=== PATIENT | female | born 1975 | race Caucasian/White ===

== ENCOUNTER 2017-09-09 09:50 | Emergency (ER) | payer OTHER ==
[2017-09-09 10:24] VITALS: BP 149/55; PULSE 83; TEMP 98.3; BMI 37.8
[2017-09-09] MEDS ORDERED: IBUPROFEN 400 MG TABLET (FP) PO ONE (11:20)
--- NOTE | 2017-09-09 11:21 | PDOC ---
History of Present Illness - General Chief Complaint: Injury Stated Complaint: INJURY Time Seen by Provider: 09/09/17 11:06 History Source: Patient Exam Limitations: No Limitations - History of Present Illness Initial Comments: 09/09/17 11:21 42-year-old woman without significant past medical history presents to the emergency department today with right foot and ankle pain status post twisting injury at work. 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 She then tried to turn and did not realize her foot was stuck between the chest. She experienced a inversion injury followed by external rotation injury of the right ankle. Patient states she heard a "cracking" sound. Patient was able to bear weight immediately after the injury the presented to the emergency department. Method of Injury: Yes: twisted Modifying Factors: improves with: None Past History - Past Medical History Allergies/Adverse Reactions: Allergies Allergy/AdvReac Type Severity Reaction Status Date / Time No Known Allergies Allergy Verified 09/09/17 10:20 Home Medications: Ambulatory Orders NK [No Known Home Medication] 09/09/17 CVA: No COPD: No DVT: No Dementia: No - Immunization History Immunization Up to Date: Yes - Suicide/Smoking/Psychosocial Hx Smoking Status: No Smoking History: Never smoked Number of Cigarettes Smoked Daily: 0 Information on smoking cessation initiated: No Hx Alcohol Use: No Drug/Substance Use Hx: No Substance Use Type: None Review of Systems - Review of Systems Able to Perform ROS?: Yes Is the patient limited Occitan proficient: No Constitutional: No: Symptoms Reported HEENTM: No: Symptoms Reported Respiratory: No: Symptoms reported Cardiac (ROS): No: Symptoms Reported ABD/GI: No: Symptoms Reported : No: Symptoms Reported Musculoskeletal: Yes: See HPI Integumentary: No: Symptoms Reported Neurological: No: Symptoms reported *Physical Exam - Vital Signs Last Vital Signs Temp Pulse Resp BP Pulse Ox 98.3 F 83 16 149/55 97 09/09/17 10:20 09/09/17 10:20 09/09/17 10:20 09/09/17 10:20 09/09/17 10:20 - Physical Exam General Appearance: Yes: Appropriately Dressed. No: Apparent Distress HEENT: positive: Normal Voice Neck: positive: Trachea midline Respiratory/Chest: positive: Lungs Clear, Normal Breath Sounds. negative: Respiratory Distress, Accessory Muscle Use Cardiovascular: positive: Regular Rhythm, Regular Rate. negative: Edema, Murmur Gastrointestinal/Abdominal: positive: Normal Bowel Sounds, Soft. negative: Tender Musculoskeletal: positive: Normal Inspection Extremity: positive: Tender (lateral aspect of dorsum of right foot extending to the lateral malleolus), Swelling (lateral aspect of dorsum of right foot extending to the lateral malleolus) Integumentary: positive: Normal Color, Dry, Warm Neurologic: positive: Fully Oriented, Alert, Motor Strength 5/5 Medical Decision Making - Medical Decision Making 09/09/17 11:18 A/P: 42yo with tenderness to right lateral malleolus extending to the lateral aspect of dorsum of right foot. +swelling to tender area. 5/5 strength with flexion and dorsiflexion of ankle. (-) ecchymosis UPT Motrin 800mg Xrays reassess 09/09/17 12:13 X-rays read by me: Yang fracture noted in the fifth metatarsal. I will apply a bulky dressing to the patient and have her follow-up with podiatry in the next 3 days. I discussed the physical exam findings, ancillary test results and final diagnoses with the patient. I answered all of the patient's questions. The patient was satisfied with the care received and felt comfortable with the discharge plan and treatment plan. The patient will call Dr. Barone within 72 hours to arrange follow-up and will return to the Emergency Department with any new, persistent or worsening symptoms. *DC/Admit/Observation/Transfer Diagnosis at time of Disposition: Yang fracture Qualifiers: Encounter type: initial encounter Fracture type: closed Laterality: right Qualified Code(s): S99.191A - Other physeal fracture of right metatarsal, initial encounter for closed fracture - Discharge Dispostion Disposition: HOME Condition at time of disposition: Stable Admit: No - Referrals Referrals: Glory Han MD [Primary Care Provider] - Carlos Barone MD [Staff Physician] - - Patient Instructions Additional Instructions: Resting your foot will help control pain. Limit the amount of time on your feet throughout the day. Apply ice for 20 minutes at a time. Remove for a minimum of 20 minutes before reapplying. Keep dressing on foot to help compress the joint which will help control pain. Elevate the foot to the level of the heart when not standing. Take Motrin or Aleve as directed by manufacturers instructions for pain. You may take Tylenol in between doses of Aleve or Motrin to help control pain. You've been given a referral for Dr. Barone, a sled maker. Make an appointment for follow-up in 3 days. Use crutches as you have been shown. Return to emergency department for worsening pain, swelling, discoloration of your foot, loss of sensation, or any other concerns. Thank you very much for choosing us to provide your emergent healthcare needs. - Post Discharge Activity Forms/Work/School Notes: Back to Work
[2017-09-09] MEDS: IBUPROFEN 400 MG TABLET (FP) PO ONE ×2 (11:34→11:51)
[2017-09-09] MEDS ORDERED: ACETAMINOPHEN 500 MG TABLET (FP) ONE (11:38)
[2017-09-09] MEDS ORDERED: ACETAMINOPHEN 500 MG TABLET (FP) PO ONE (11:49)
== END 2017-09-09 12:44 | disposition home or self-care (01) ==
LOC: JERFT 09:50
DX: S92.354A Nondisplaced fracture of fifth metatarsal bone, right foot, initial encounter for closed fracture (principal); X50.1XXA Overexertion from prolonged static or awkward postures, initial encounter; Y93.89 Activity, other specified; Y92.218 Other school as the place of occurrence of the external cause; Y99.0 Civilian activity done for income or pay
CPT/HCPCS: 73610-TC-RT; 73630-TC-RT; 99281-25

== ENCOUNTER 2017-12-11 11:47 | Emergency (ER) | payer OTHER ==
[2017-12-11 11:57] VITALS: BMI 37.8
--- NOTE | 2017-12-11 13:17 | PDOC ---
History of Present Illness - General History Source: Patient, Old Records, Primary Care Provider Exam Limitations: No Limitations - History of Present Illness Initial Comments: 12/11/17 14:04 The patient is a 42 year old female, with no significant past medical history, who presents to the emergency department with right calf pain, erythema and edema for the past two days. The patient recently had an ORIF of the 5th metatarsal performed on November 06, 2017. The patient states that her incision site was healing well and that she was ambulating well with a walking boot. Two days ago, she woke up with what she explains as intense pain, erythema and edema of the right calf. She was seen by the trade mark attorney who performed the procedure yesterday, started on Bactrim and was sent to the ED for DVT r/o. She denies fever, chills, headache, dizziness, shortness of breath, chest pain, nausea, vomiting, diarrhea or constipation. The patient denies any recent travel. Allergies: None reported. Past Surgical History: Right foot, ORIF of the 5th metatarsal. Social History: Non-smoker. Denies alcohol or drug use. 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 <Aundrea Fischer - Last Filed: 12/11/17 14:04> <Malathi Centeno - Last Filed: 12/11/17 16:57> - General Chief Complaint: Redness To Affected Area Stated Complaint: PCP SENT (POSSIBLE BLOOD CLOT) Past History <Aundrea Fischer - Last Filed: 12/11/17 14:04> - Past Medical History CVA: No COPD: No DVT: No Dementia: No - Immunization History Immunization Up to Date: Yes - Suicide/Smoking/Psychosocial Hx Smoking Status: No Smoking History: Never smoked Number of Cigarettes Smoked Daily: 0 Information on smoking cessation initiated: No Hx Alcohol Use: No Drug/Substance Use Hx: No Substance Use Type: None <Malathi Centeno - Last Filed: 12/11/17 16:57> - Past Medical History Allergies/Adverse Reactions: Allergies Allergy/AdvReac Type Severity Reaction Status Date / Time No Known Allergies Allergy Verified 12/11/17 11:53 Home Medications: Ambulatory Orders Sulfamethoxazole/Trimethoprim [Bactrim Ds -] 1 tab PO DAILY 12/11/17 Review of Systems - Review of Systems Able to Perform ROS?: Yes Comments:: 12/11/17 14:05 GENERAL/CONSTITUTIONAL: No fever or chills. No weakness. HEAD, EYES, EARS, NOSE AND THROAT: No change in vision. No ear pain or discharge. No sore throat. GASTROINTESTINAL: No nausea, vomiting, diarrhea or constipation. GENITOURINARY: No dysuria, frequency, or change in urination. CARDIOVASCULAR: No chest pain or shortness of breath. RESPIRATORY: No cough, wheezing, or hemoptysis. MUSCULOSKELETAL: +Right lower extremity pain, erythema and edema. No joint swelling or pain. No neck or back pain. SKIN: No rash. NEUROLOGIC: No headache, vertigo, loss of consciousness, or change in strength/ sensation. ENDOCRINE: No increased thirst. No abnormal weight change. HEMATOLOGIC/LYMPHATIC: No anemia, easy bleeding, or history of blood clots. ALLERGIC/IMMUNOLOGIC: No hives or skin allergy. <Aundrea Fischer - Last Filed: 12/11/17 14:04> *Physical Exam - Vital Signs Last Vital Signs Temp Pulse Resp BP Pulse Ox 98.0 F 72 18 114/57 100 12/11/17 11:54 12/11/17 11:54 12/11/17 11:54 12/11/17 11:54 12/11/17 11:54 - Physical Exam Comments: 12/11/17 14:05 GENERAL: Awake, alert, and fully oriented, in no acute distress HEAD: No signs of trauma EYES: PERRLA, EOMI, sclera anicteric, conjunctiva clear ENT: Auricles normal inspection, hearing grossly normal, nares patent, oropharynx clear without exudates. Moist mucosa NECK: Normal ROM, supple, no lymphadenopathy, JVD, or masses LUNGS: Breath sounds equal, clear to auscultation bilaterally. No wheezes, and no crackles HEART: Regular rate and rhythm, normal S1 and S2, no murmurs, rubs or gallops ABDOMEN: Soft, nontender, normoactive bowel sounds. No guarding, no rebound. No masses EXTREMITIES: R calf with non pitting edema and warm, erythematous almost circumferential patch in the mid calf. +ttp of calf. R lateral foot with ORIF wound c/d/i, 2+ DP pulse, normal cap refill. Otherwise, normal range of motion, no edema. No clubbing or cyanosis. No cords, erythema, or tenderness NEUROLOGICAL: Normal speech, cranial nerves intact, negative pronator drift, 5/ 5 strength in all 4 extremities, normal sensation to light touch in all 4 extremities, normal cerebellar exam, normal gait, normal reflexes and tone SKIN: Warm, Dry, normal turgor, no rashes or lesions noted. <Aundrea Fischer - Last Filed: 12/11/17 14:04> - Vital Signs Last Vital Signs Temp Pulse Resp BP Pulse Ox 98.0 F 72 18 114/57 100 12/11/17 11:54 12/11/17 11:54 12/11/17 11:54 12/11/17 11:54 12/11/17 11:54 <Malathi Centeno - Last Filed: 12/11/17 16:57> ED Treatment Course - LABORATORY CBC & Chemistry Diagram: 12/11/17 14:50 12/11/17 13:17 <Malathi Centeno - Last Filed: 12/11/17 16:57> Medical Decision Making - Medical Decision Making 12/11/17 14:10 42-year-old female with a recent foot surgery presents emergency Department with 2 days of right calf swelling, redness, and pain. No systemic symptoms of infection, no fevers/chills. Vitals within normal limits. Differential includes but not limited to cellulitis versus DVT. Plan: -labs -US -pt declines pain meds -reassess 12/11/17 16:51 Labs within normal limits. Ultrasound negative for DVT. Likely cellulitis. Patient does not have a primary doctor, will refer to resident clinic for follow -up in 2 days. Also advised pt to get rpt US in 1 week to r/o DVT and to return to the emergency department if redness, warmth, swelling does not improve in 2 days on antibiotics or if she develops fever or any new, worsening or concerning symptoms. Patient has prescription for Bactrim from the trade mark attorney. I discussed the physical exam findings, ancillary test results and final diagnoses with the patient. I answered all of the patient's questions. The patient was satisfied with the care received and felt comfortable with the discharge plan and treatment plan. The patient will call their primary care physician within 24 hours to arrange follow-up and will return to the Emergency Department with any new, persistent or worsening symptoms. <Malathi Centeno - Last Filed: 12/11/17 16:57> *DC/Admit/Observation/Transfer - Attestations Scribe Attestion: 12/11/17 14:06 Documentation prepared by Aundrea Fischer, acting as medical review coordinator for Malathi Centeno MD. <Aundrea Fischer - Last Filed: 12/11/17 14:04> - Discharge Dispostion Admit: No - Attestations Physician Attestion: 12/11/17 16:57 I, Dr. Malathi Centeno MD, attest that this document has been prepared under my direction and personally reviewed by me in its entirety. I further attest, that it accurately reflects all work, treatment, procedures and medical decision -making performed by me. <Malathi Centeno - Last Filed: 12/11/17 16:57> Diagnosis at time of Disposition: Cellulitis - Discharge Dispostion Disposition: HOME Condition at time of disposition: Stable - Referrals Ref[place]: [facility] [place] Group] - Patient Instructions Printed Discharge Instructions: DI for Cellulitis -- Adult Additional Instructions: Call the number in the provided referral today for follow up appointment with a primary doctor in 2 days. As discussed, you will also need a repeat ultrasound of your leg within 1 week. Take the antibiotics as prescribed. Return to the emergency department if you have any new, worsening or concerning symptoms including worsening redness, swelling, warmth, or fevers. - Post Discharge Activity
[2017-12-11 15:00] LABS: BASO % 0.2 % (0-2.0); EOS % 0.9 % (0-4.5); HEMATOCRIT 40.3 % (32.4-45.2); HEMOGLOBIN 13.7 GM/dL (10.7-15.3); LYMPH % 20.1 % (8-40); MCH 31.8 pg (25.7-33.7); MCHC 33.9 g/dl (32.0-36.0); MEAN CELL VOLUME 93.6 fl (80-96); MEAN PLT VOLUME 7.9 fl (7.5-11.1); MONO % 7.7 % (3.8-10.2); NEUT % 71.1 % (42.8-82.8); PLATELET COUNT 231 K/MM3 (134-434); RBC 4.31 M/mm3 (3.60-5.2); RDW 13.2 % (11.6-15.6); WHITE BLOOD COUNT 6.9 K/mm3 (4.0-10.0)
[2017-12-11 15:11] LABS: INR 1.05 (0.82-1.09); PROTHROMBIN TIME (PATIENT) 11.9 SEC (9.7-13.0)
[2017-12-11 15:13] LABS: ACTIVATED PTT 27.7 SECONDS (26.9-34.4)
[2017-12-11 15:24] LABS: ALBUMIN 3.4 g/dl (3.4-5.0); ALK PHOS 98 U/L (45-117); ANION GAP 11 (8-16); BILIRUBIN,TOTAL 0.4 mg/dL (0.2-1.0); BLOOD UREA NITROGEN 14 mg/dL (7-18); CALCIUM 8.9 mg/dL (8.5-10.1); CHLORIDE 104 mmol/L (98-107); CO2 24 mmol/L (21-32); CREATININE 0.9 mg/dL (0.55-1.02); GLUCOSE,RANDOM 78 mg/dL (74-106); POTASSIUM 4.2 mmol/L (3.5-5.1); SGOT/AST 17 U/L (15-37); SGPT/ALT 17 U/L (12-78); SODIUM 139 mmol/L (136-145); TOT PROT 7.4 g/dl (6.4-8.2)
[2017-12-11 17:51] VITALS: BP 121/61; PULSE 74; TEMP 97.8
== END 2017-12-11 17:30 | disposition home or self-care (01) ==
LOC: JER 11:47
DX: L03.90 Cellulitis, unspecified (principal)
CPT/HCPCS: 36415; 80053; 85025; 85610; 85730; 86850; 86900; 86901; 93971-TC; 99282-25

== ENCOUNTER 2019-04-12 11:36 | Emergency (ER) | payer OTHER ==
[2019-04-12 11:43] VITALS: TEMP 98.6; BMI 36.6
[2019-04-12] MEDS ORDERED: KETOROLAC TROMETHAMINE 30 MG/1 ML VIAL IVPUSH ONE (12:46)
[2019-04-12] MEDS ORDERED: SODIUM CHLORIDE 1,000 ML IV STA (12:46)
[2019-04-12] MEDS ORDERED: METOCLOPRAMIDE HCL INJECTION 10 MG/2 ML VIAL IVPB ONE (12:46)
[2019-04-12] MEDS ORDERED: METOCLOPRAMIDE HCL INJECTION 10 MG/2 ML VIAL ONE (13:15)
[2019-04-12] MEDS ORDERED: KETOROLAC TROMETHAMINE 30 MG/1 ML VIAL ONE (13:16)
--- NOTE | 2019-04-12 13:30 | PDOC ---
History of Present Illness - General Chief Complaint: Headache Stated Complaint: HEADACHE/NAUSEA Time Seen by Provider: 04/12/19 12:44 History Source: Patient Exam Limitations: No Limitations - History of Present Illness Initial Comments: 04/12/19 13:04 44 y/o 44 y/o female presents to ED with complaints of generalized throb intermittent nausea left shoulder pain x 1 week and generalized tingling intermittently for the past few weeks. Patient denies weakness, visual changes, vomiting, dizziness, recent MVA, fever, or chills. Patient denies recent dental work, throat pain, ear pain. Patient states took Aleve yesterday with good effect but did return this morning and so decided to seek medical treatment Timing/Duration: reports: episodic Severity: Yes: mild Associated Symptoms: reports: nausea/vomiting Past History - Travel Traveled outside of the country in the last 30 days: No Close contact w/someone who was outside of country & ill: No - Past Medical History Allergies/Adverse Reactions: Allergies Allergy/AdvReac Type Severity Reaction Status Date / Time No Known Allergies Allergy Verified 04/12/19 11:39 CVA: No COPD: No DVT: No Dementia: No - Immunization History Immunization Up to Date: Yes - Suicide/Smoking/Psychosocial Hx Smoking Status: No Smoking History: Never smoked Number of Cigarettes Smoked Daily: 0 Hx Alcohol Use: No Drug/Substance Use Hx: No Substance Use Type: None Patient Lives Alone: No Lives with/in: spouse/SO Neuro Specific PMHX - Complaint Specific PMHX Migraine: No Review of Systems - Review of Systems Able to Perform ROS?: Yes Constitutional: No: Symptoms Reported HEENTM: No: Symptoms Reported, Eye Pain Respiratory: No: Symptoms reported Cardiac (ROS): No: Symptoms Reported ABD/GI: Yes: Nausea : No: Symptoms Reported Musculoskeletal: No: Symptoms Reported Neurological: Yes: Headache, Tingling. No: Numbness, Weakness, Dizziness Endocrine: No: Symptoms Reported Hematologic/Lymphatic: No: Symptoms Reported *Physical Exam - Vital Signs Last Vital Signs Temp Pulse Resp BP Pulse Ox 98.6 F 78 18 142/74 100 04/12/19 11:39 04/12/19 11:39 04/12/19 11:39 04/12/19 11:39 04/12/19 11:39 - Physical Exam General Appearance: Yes: Nourished, Appropriately Dressed HEENT: positive: EOMI, LEYDI, TMs Normal, Pharynx Normal. negative: Pale Conjunctivae Neck: positive: Normal Thyroid, Supple Respiratory/Chest: positive: Lungs Clear, Normal Breath Sounds. negative: Respiratory Distress, Accessory Muscle Use Cardiovascular: positive: Regular Rhythm, Regular Rate. negative: Murmur Gastrointestinal/Abdominal: positive: Soft. negative: Tenderness Extremity: positive: Normal Capillary Refill. negative: Pedal Edema Integumentary: positive: Normal Color, Warm, Moist Neurologic: positive: Motor Strength 5/5 (ambulatory) ED Treatment Course - LABORATORY CBC & Chemistry Diagram: 04/12/19 13:26 04/12/19 13:26 - RADIOLOGY Radiology Studies Ordered: Category Date Time Status HEAD CT WITHOUT CONTRAST [CT] Stat CT Scan 04/12/19 13:09 Ordered Medical Decision Making - Medical Decision Making 04/12/19 13:37 Chief complaint: Headache with nausea 1 week with intermittent tingling to extremities x 4 greater on the left for the past 2 weeks Exam: Vital signs stable no neuro focal deficits Plan: head CT, labs, IV fluids, Reglan and Toradol ordered 04/12/19 14:40 Laboratory Tests 04/12/19 04/12/19 04/12/19 13:26 13:26 14:10 WBC 6.0 Hgb 14.0 Hct 40.6 RDW 13.5 Absolute Neuts (auto) 4.1 Lymphocytes % 22.0 Monocytes % 8.1 Eosinophils % 1.3 Basophils % 0.4 Sodium 140 Potassium 4.1 Chloride 107 Carbon Dioxide 29 BUN 12.1 Creatinine 0.7 Est GFR (CKD-EPI)AfAm 121.27 Est GFR (CKD-EPI)NonAf 104.64 Calcium 8.9 Total Bilirubin 0.6 AST 15 ALT 17 Urine Ketones Negative Urine Blood Negative Urine Nitrite Negative Urine Bilirubin Negative Ur Leukocyte Esterase Negative patient states feeling better and awaiting head CT 04/12/19 15:43 CT shows no intracranial hemorrhage, mass lesion, or infarct. Complete opacification of the right maxillary sinus which demonstrates increased central density consistent with secretions or chronic allergic sinusitis. Also noted similar moderate opacification of the right ethmoid sinus. *DC/Admit/Observation/Transfer Diagnosis at time of Disposition: Headache, Tingling - Discharge Dispostion Disposition: HOME Condition at time of disposition: Improved - Referrals Referrals: Josue Velasquez MD [Primary Care Provider] - Horacio Marks MD [Staff Physician] - - Patient Instructions Printed Discharge Instructions: DI for Sinusitis, DI for Numbness/tingling, DI for Cervical Radiculopathy Additional Instructions: May take Motrin or Tylenol for discomfort but I do recommend purchasing Claritin 10 mg to take daily until you're seen by the ENT specialist in regards to sinusitis. - Post Discharge Activity
[2019-04-12 13:33] LABS: BASO % 0.4 % (0-2.0); EOS % 1.3 % (0-4.5); HEMATOCRIT 40.6 % (32.4-45.2); MCH 32.4 pg (25.7-33.7); MCHC 34.5 g/dl (32.0-36.0); MEAN CELL VOLUME 93.9 fl (80-96); MEAN PLT VOLUME 7.5 fl (7.5-11.1); MONO % 8.1 % (3.8-10.2); NEUT % 68.2 % (42.8-82.8); PLATELET COUNT 257 K/MM3 (134-434); RBC 4.32 M/mm3 (3.60-5.2); RDW 13.5 % (11.6-15.6)
[2019-04-12 14:05] LABS: ALBUMIN 3.5 g/dl (3.4-5.0); BILIRUBIN,TOTAL 0.6 mg/dL (0.2-1); BLOOD UREA NITROGEN 12.1 mg/dL (7-18); CALCIUM 8.9 mg/dL (8.5-10.1); CREATININE 0.7 mg/dL (0.55-1.3); POTASSIUM 4.1 mmol/L (3.5-5.1); TOT PROT 7.3 g/dl (6.4-8.2)
[2019-04-12 14:29] LABS: PH,URINE 5.5 (5.0-8.0); URINE APPEARANCE CLEAR; URINE BILIRUBIN NEGATIVE (NEGATIVE); URINE COLOR YELLOW; URINE GLUCOSE (UA) NEGATIVE (NEGATIVE); URINE KETONE NEGATIVE (NEGATIVE); URINE LEUK ESTERASE NEGATIVE (NEGATIVE); URINE NITRITE NEGATIVE (NEGATIVE); URINE PROTEIN NEGATIVE (NEGATIVE); URINE UROBILINOGEN 0.2 mg/dL (0.2-1.0)
[2019-04-12 16:07] VITALS: BP 117/78; PULSE 68
== END 2019-04-12 16:05 | disposition home or self-care (01) ==
LOC: JER 11:36
PROC: 3E033GC Introduction of Other Therapeutic Substance into Peripheral Vein, Percutaneous Approach (ICD-10-PCS; principal; 2019-04-12)
PROC: 3E0333Z Introduction of Anti-inflammatory into Peripheral Vein, Percutaneous Approach (ICD-10-PCS; 2019-04-12)
DX: J01.90 Acute sinusitis, unspecified (principal); R51 Headache; R20.2 Paresthesia of skin
CPT/HCPCS: 36415; 70450-TC; 80053; 81003; 85025; 99283-25; J7030

== ENCOUNTER 2019-05-09 10:37 | Emergency (ER) | payer OTHER ==
[2019-05-09 10:47] VITALS: BP 132/72; PULSE 76; TEMP 98; BMI 36.6
--- NOTE | 2019-05-09 11:44 | PDOC ---
Attending Attestation - Resident Resident Name: Nnamdi Zamarriparubényael - HPI HPI: 05/09/19 12:49 Pt presents to the ED complaining of numbness and tingling that involves her entire upper body. Seen in the ED for similar complaints three weeks ago with negative work up that included labs and CT head. Numbness is now confined to the left arm. Denies weakness or other neurologic complaints. - Physicial Exam PE: 05/09/19 13:04 Agree with resident exam. Patient is alert and oriented and in no acute distress. Neuro: CN grossly intact. Normal mood and affect. 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 No pronator drift. - Medical Decision Making 05/09/19 13:08 Pt presents to the ED complaining of numbness and tingling to the left arm. Seen in the ED three weeks ago for similar complaints with negative work up. Will check labs to rule out electrolyte disturbance, likely discharge home if negative.
--- NOTE | 2019-05-09 12:41 | PDOC ---
History of Present Illness - General Chief Complaint: Weakness Stated Complaint: NUMNESS IN LEGS Time Seen by Provider: 05/09/19 11:39 - History of Present Illness Initial Comments: 05/09/19 14:05 Pt presents with 3-4 hrs of numbness and tingling from her shoulders down to her lower extremities. Denies any precipitating/ inciting event. She has had some nausea but no vomiting and a tension headache. She denies any fevers, sick contacts, hx of stroke/heart disease/diabetes. Was last seen 04/12 for the same complaint. Her CT from that last visit showed no hemorrhage or infarct and she was discharged home with instructions for follow up to PCP which she will be doing tomorrow.She is able to walk, heat and frost insulator her arms and her speech is intact. She denies any chest pain, shortness of breath, tick bites, rashes, abdominal pain, diarrhea, syncopal events. trauma or falls. 05/09/19 14:38 Past History - Past Medical History Allergies/Adverse Reactions: Allergies Allergy/AdvReac Type Severity Reaction Status Date / Time No Known Allergies Allergy Verified 05/09/19 10:47 CVA: No COPD: No DVT: No Dementia: No - Immunization History Immunization Up to Date: Yes - Psycho Social/Smoking Cessation Hx Smoking Status: No Smoking History: Never smoked Number of Cigarettes Smoked Daily: 0 Hx Alcohol Use: No Drug/Substance Use Hx: No Substance Use Type: None Review of Systems - Review of Systems Constitutional: No: Chills, Fever HEENTM: No: Blurred Vision, Tearing Respiratory: No: Cough, Shortness of Breath Cardiac (ROS): No: Chest Pain ABD/GI: No: Abdominal Distended : No: Burning, Dysuria Musculoskeletal: No: Back Pain Integumentary: No: Bruising, Change in Color Neurological: Yes: Symptoms reported Hematologic/Lymphatic: No: Easy Bleeding, Easy Bruising *Physical Exam - Vital Signs Last Vital Signs Temp Pulse Resp BP Pulse Ox 98 F 76 18 132/72 99 05/09/19 10:44 05/09/19 10:44 05/09/19 10:44 05/09/19 10:44 05/09/19 10:44 - Physical Exam Comments: 05/09/19 12:43 PE: GENERAL: Awake, alert, and fully oriented, in no acute distress HEAD: No signs of trauma, normocephalic, atraumatic EYES: PERRLA, EOMI, sclera anicteric, conjunctiva clear ENT: Auricles normal inspection, hearing grossly normal, nares patent, oropharynx clear without exudates. Moist mucosa NECK: Normal ROM, supple, no lymphadenopathy, JVD, or masses LUNGS: No distress, speaks full sentences, clear to auscultation bilaterally HEART: Regular rate and rhythm, normal S1 and S2, no murmurs, rubs or gallops, peripheral pulses normal and equal bilaterally. ABDOMEN: Soft, nontender, normoactive bowel sounds. No guarding, no rebound. No masses EXTREMITIES : Normal inspection, Normal range of motion, no edema. No clubbing or cyanosis NEUROLOGICAL: Cranial nerves II through XII grossly intact. 5/5 strength lower and upper extremities. increased dizziness with EOMI, HINTS negative. diminishes sensation on left fro shoulder to feet. 2+ radial and pedal pulses bilaterally. ambulating normally. SKIN: Warm, Dry, normal turgor, no rashes or lesions noted 05/09/19 14:31 ED Treatment Course - LABORATORY CBC & Chemistry Diagram: 05/09/19 13:00 05/09/19 12:22 Medical Decision Making - Medical Decision Making 05/09/19 12:41 CT from 04/12/19 showed no intraparenchymal hemorrhage no CT evidence of acute subarachnoid hemorrhage no extra-axial fluid collection no infarct complete opacification of the right maxillary sinus demonstrating increased central density consistent with either inispissated secretions or chronic allergic fungal sinusitis. 05/09/19 14:03 EKG: normal sinus rhythm, normal EKG Labs unremarkable Pt discharged with follow up to PCP and neurologist for further evaluation of complaints. Ambulating and doing well at this time. Discharge - Discharge Information Problems reviewed: Yes Clinical Impression/Diagnosis: Numbness and tingling Condition: Stable Disposition: HOME - Admission No - Follow up/Referral Referrals: Ozzie Ramirez DO [Staff Physician] - Rafael Estrada MD [Staff Physician] - Sherry Kaufman MD [Staff Physician] - - Patient Discharge Instructions Patient Printed Discharge Instructions: DI for Numbness/tingling Additional Instructions: You were seen in the ER for numbness and tingling. Your lab results today did not show any concerning findings. We are recommending follow up with a neurologist for more focused and detailed evaluation. Your care is not complete until you do so. Return to the ER if you develop fevers, chills, nausea, vomiting, headache not relieved by over the counter medications. You have also been given copies of you lab work and CT from 04/12/19 - Post Discharge Activity
[2019-05-09 13:08] LABS: BASO % 0.8 % (0-2.0); EOS % 0.7 % (0-4.5); HEMATOCRIT 42.8 % (32.4-45.2); HEMOGLOBIN 14.2 GM/dL (10.7-15.3); LYMPH % 24.6 % (8-40); MCH 31.3 pg (25.7-33.7); MCHC 33.2 g/dl (32.0-36.0); MEAN CELL VOLUME 94.4 fl (80-96); MEAN PLT VOLUME 8.1 fl (7.5-11.1); MONO % 5.8 % (3.8-10.2); NEUT % 68.1 % (42.8-82.8); PLATELET COUNT 236 K/MM3 (134-434); RBC 4.53 M/mm3 (3.60-5.2); WHITE BLOOD COUNT 6.6 K/mm3 (4.0-10.0)
[2019-05-09 13:34] LABS: ALBUMIN 3.4 g/dl (3.4-5.0); BILIRUBIN,TOTAL 0.6 mg/dL (0.2-1); BLOOD UREA NITROGEN 13.8 mg/dL (7-18); CALCIUM 8.5 mg/dL (8.5-10.1); CREATININE 0.7 mg/dL (0.55-1.3); PHOSPHOROUS 3.5 mg/dL (2.5-4.9); POTASSIUM 4.1 mmol/L (3.5-5.1); TOT PROT 7.1 g/dl (6.4-8.2)
--- NOTE | 2019-05-09 16:44 | EKG ---
Test Reason : Blood Pressure : / mmHG Vent. Rate : 069 BPM Atrial Rate : 069 BPM P-R Int : 130 ms QRS Dur : 082 ms QT Int : 402 ms P-R-T Axes : 037 037 024 degrees QTc Int : 430 ms NORMAL SINUS RHYTHM NORMAL ECG WHEN COMPARED WITH ECG OF 02-JUL-2011 15:57, NO SIGNIFICANT CHANGE WAS FOUND Confirmed by DELMA BALDERAS MD ([id number]) on 05/09/2019 4:43:47 PM Referred By: Confirmed By:DELMA BALDERAS MD
== END 2019-05-09 14:27 | disposition home or self-care (01) ==
LOC: JER 10:37
DX: R20.0 Anesthesia of skin (principal); R20.2 Paresthesia of skin
CPT/HCPCS: 36415; 80053; 83735; 84100; 84484; 85025; 93005; 93010; 99283-25

== ENCOUNTER 2022-04-29 15:18 | Emergency (ER) | payer OTHER ==
[2022-04-29 15:38] VITALS: RESP 19; TEMP 98.3; BMI 43.5
[2022-04-29] MEDS ORDERED: MECLIZINE HCL 25 MG TABLET (FP) PO ONE (16:53)
[2022-04-29] MEDS ORDERED: MECLIZINE HCL 25 MG TABLET (FP) ONE (17:01)
[2022-04-29 17:24] VITALS: PULSE 70
[2022-04-29 17:25] VITALS: BP 140/58
[2022-04-29 17:48] LABS: PH,URINE 6.5 (5.0-8.0); URINE APPEARANCE CLEAR; URINE BILIRUBIN NEGATIVE (NEGATIVE); URINE COLOR YELLOW; URINE GLUCOSE (UA) NEGATIVE (NEGATIVE); URINE KETONE NEGATIVE (NEGATIVE); URINE LEUK ESTERASE NEGATIVE (NEGATIVE); URINE NITRITE NEGATIVE (NEGATIVE); URINE PROTEIN NEGATIVE (NEGATIVE)
[2022-04-29 17:51] LABS: HCG,QUALITATIVE URINE Negative
[2022-04-29] MEDS ORDERED: NAPROXEN 250 MG TABLET PO ONE (17:53)
[2022-04-29] MEDS ORDERED: NAPROXEN 500 MG TABLET ONE (17:59)
== END 2022-04-29 18:25 | disposition home or self-care (01) ==
LOC: JER 15:18
DX: R42 Dizziness and giddiness (principal)
CPT/HCPCS: 81003; 82962; 84703; 87086; 93005; 93010; 99284-25